=== PATIENT | male | born 1990 | race Two or more races ===

== ENCOUNTER 2021-10-16 12:30 | Emergency (ER) | payer MEDICAID ==
[2021-10-16 12:37] VITALS: BP 146/80
[2021-10-16] MEDS ORDERED: IBUPROFEN 800 MG TABLET PO STA (12:54)
[2021-10-16] MEDS ORDERED: HYDROcod/ACETAM 5/325 MG TABLET PO STA (12:54)
--- NOTE | 2021-10-16 12:56 | ED Physician Documentation ---
PD HPI LOWER EXT INJURY - Stated complaint Stated Complaint: R ANKLE INJ - Chief complaint Chief Complaint: Trauma Ext - History obtained from History obtained from: Patient - History of Present Illness PD HPI LOW EXT INJURY LOCATION: Right, Ankle Type of injury: Fall Where injury occurred: Street Timing - onset: Yesterday Timing - details: Abrupt onset, Still present Pain level now: 9 Associated symptoms: Swelling, Discolored - Additional information Additional information: Skateboarding yesterday and inverted his ankle. Unable to walk. No other injuries. Review of Systems Constitutional: reports: Reviewed and negative Eyes: reports: Reviewed and negative Ears: reports: Reviewed and negative Nose: reports: Reviewed and negative Throat: reports: Reviewed and negative Cardiac: reports: Reviewed and negative Respiratory: reports: Reviewed and negative PD PAST MEDICAL HISTORY - Past Medical History Past Medical History: No - Present Medications Home Medications: Ambulatory Orders Medication Instructions Recorded Confirmed HYDROcod/ACETAM 5/325 [[place] 5/325] 1 - 2 tab PO Q6H PRN #15 tablet 10/16/21 - Allergies Allergies/Adverse Reactions: Allergies Allergy/AdvReac Type Severity Reaction Status Date / Time No Known Drug Allergies Allergy Verified 10/16/21 12:37 - Social History Does the pt smoke?: No Smoking Status: Never smoker PD ED PE NORMAL - Vitals Vital signs reviewed: Yes - General General: Alert and oriented X 3, No acute distress - Extremities Extremities: Other (Very swollen and discolored right ankle laterally with severe malleoli or tenderness bilaterally but no significant foot tenderness or proximal fibular tenderness.) - Neuro Neuro: Alert and oriented X 3, Normal speech Results - Vitals Vitals: Vital Signs - 24 hr 10/16/21 12:35 Temperature 36.2 C L Heart Rate 96 Respiratory 16 Rate Blood Pressure 146/80 H O2 Saturation 98 Oxygen O2 Source Room air - Rads (name of study) Three-view x-ray of the right ankle demonstrates small avulsion fractures of both the medial and lateral malleoli Radiology: EMP read contemporaneously Procedures - Splint (location) Right lower extremity Splint applied by: Physician Type of splint: Fiberglass, Short leg, Posterior Other: Patient tolerated well, No complications, Neurovascular intact, Other (He already has well fitting crutches) Departure - Departure Disposition: 01 Home, Self Care Clinical Impression: Ankle fracture Qualifiers: Encounter type: initial encounter Fracture type: closed Laterality: right Qualified Code(s): S82.891A - Other fracture of right lower leg, initial encounter for closed fracture Condition: Good Record reviewed to determine appropriate education?: Yes Instructions: ED Fx Ankle Lateral Malleolus Follow-Up: Orthopedic Care [Provider Group] Prescriptions: HYDROcod/ACETAM 5/325 [[place] 5/325] 1 - 2 tab PO Q6H PRN #15 tablet PRN Reason: Pain Comments: I sent your prescription electronically to [facility] in [place]. Call the orthopedic office tomorrow to arrange for follow-up appointment within a week to 10 days. Do not walk or bear weight on the ankle until advised by them it is appropriate to do so. Crutches only. If pain is mild try to stick with Tylenol and/or ibuprofen. I am prescribing a short course of narcotic pain medication for you. These are potentially dangerous and addictive medications that should be used carefully. These medications may constipate you. Take an rbrq-evc-tboctaq stool softener (docusate) twice daily with plenty of water while taking these medications. If you go 24 hours without a bowel movement, take nlqz-ere-xeovhyg miralax, per package instructions. Do not drink or drive while taking these medications. If you received narcotic or sedating medications while in the emergency department, do not drive for 24 hours. Store this medication in a safe, secure place and out of reach of children. It is a violation of federal law to give or sell this medication to another person or to use in a manner other than prescribed. The ED will not refill narcotic prescriptions, including prescriptions lost or stolen. To dispose of unwanted medications: 1. [facility] at [address] in [place] has a medication drop box. They accept prescription medications (in pill form) Sunday through Sunday 9:00 a.m. to 5:00 p.m. 2. The [facility] [employer] accepts prescription medications (in pill form only) for disposal year round. Call for more info rmation. 3. Contact the [facility] for the next [facility] sponsored prescription drug collection event. , [phone], or [phone]; Note that many narcotic pain relievers also contain Tylenol/acetaminophen. Please ensure that your total dose of acetaminophen from all sources does not exceed 3 g (3000 mg) per day.
--- NOTE | 2021-10-16 13:09 | XRAY Report ---
PROCEDURE: Ankle 3 View RT INDICATIONS: Ankle injury TECHNIQUE: 3 views of the ankle were acquired. COMPARISON: None. FINDINGS: Bones: Small ossicles are seen adjacent to the medial and lateral malleoli. No dislocations. Ankle mortise is normally aligned. No suspicious bony lesions. Soft tissues: No tibiotalar joint effusion. Achilles tendon appears normal. Prominent soft tissue s welling over the lateral and medial malleoli. IMPRESSION: 1. Small ossicles adjacent to the medial and lateral malleoli suggest avulsion fractures. Reviewed by: Jenae Cleveland MD on 10/16/2021 12:08 PM [place] Approved by: Jenae Cleveland MD on 10/16/2021 12:08 PM [place] Station ID: [id number]
== END 2021-10-16 13:33 | disposition home or self-care (01) ==
LOC: ED 12:30
DX: S82.891A Other fracture of right lower leg, initial encounter for closed fracture (principal); V00.131A Fall from skateboard, initial encounter; Y93.51 Activity, roller skating (inline) and skateboarding
CPT/HCPCS: 29515; 73610; 99283; A9270

== ENCOUNTER 2021-10-21 09:41 | Outpatient (CLI) | payer MEDICAID ==
--- NOTE | 2021-10-21 16:54 | XRAY Report ---
PROCEDURE: Ankle 3 View RT INDICATIONS: LEG/ANKLE/FOOT PAIN SKATE BOARDING INJURY TECHNIQUE: 3 views of the ankle were acquired. COMPARISON: FINDINGS: Bones small ossicle adjacent to the medial and lateral malleoli are stable compared to prior exam. No suspicious bony lesions. Soft tissues: No tibiotalar joint effusion. Achilles tendon appears normal. Soft tissue swelling i s noted and ligamentous injury cannot be excluded. IMPRESSION: Small ossicle suggesting avulsion fractures involving the tips of the lateral medial mal leoli are unchanged compared to prior exam. Reviewed by: Elo Stevenson MD, PhD on 10/21/2021 4:53 PM PDT Approved by: Elo Stevenson MD, PhD on 10/21/2021 4:53 PM PDT Station ID: [id number]
--- NOTE | 2021-10-21 16:56 | XRAY Report ---
PROCEDURE: Foot 3 View RT INDICATIONS: LEG/ANKLE/FOOT PAIN SKATE BOARDING INJURY TECHNIQUE: 3 views of the foot were acquired. COMPARISON: None FINDINGS: Bones: No fractures or dislocations. No suspicious bony lesions. Incidental note made of an os wayne cularis. Soft tissues: No tibiotalar joint effusion. Achilles tendon appears normal. IMPRESSION: No foot fracture. No lytic osseous lesion. If symptoms and/or clinical concern for pathology persists , further assessment with repeat plain film radiographs (7-10 days) or advanced imaging (CT, MR, bone scan) should be considered. Reviewed by: Elo Stevenson MD, PhD on 10/21/2021 4:54 PM PDT Approved by: Elo Stevenson MD, PhD on 10/21/2021 4:54 PM PDT Station ID: [id number]
--- NOTE | 2021-10-21 16:57 | XRAY Report ---
PROCEDURE: Tib/Fib RT INDICATIONS: LEG/ANKLE/FOOT PAIN SKATE BOARDING INJURY TECHNIQUE: 2 views of the tibia and fibula were acquired. COMPARISON: Ankle x-ray series 10/17/2019 2. 10/21/2021 FINDINGS: Bones: No ossicles adjacent to the lateral medial malleoli are stable. Soft tissues: No suspicious soft tissue calcifications or masses. Soft tissue swelling adjacent to t he lateral medial malleoli noted and ligamentous injury is not excluded by this study. IMPRESSION: Small ossicles adjacent to the lateral medial malleoli suggesting avulsion fractures are stable chayo red to ankle x-ray series. Reviewed by: Elo Stevenson MD, PhD on 10/21/2021 4:56 PM PDT Approved by: Elo Stevenson MD, PhD on 10/21/2021 4:56 PM PDT Station ID: [id number]
== END 2021-10-21 23:59 | disposition home or self-care (01) ==
LOC: DI.WOS 09:41
PROVIDERS: ATTEND Physician Assistant
DX: S82.844A Nondisplaced bimalleolar fracture of right lower leg, initial encounter for closed fracture (principal)

== ENCOUNTER 2021-11-02 10:00 | Outpatient (CLI) | payer MEDICAID ==
--- NOTE | 2021-10-31 12:29 | XRAY Report ---
PROCEDURE: Foot 3 View RT INDICATIONS: FOOT PAIN TECHNIQUE: 3 views of the foot were acquired. COMPARISON: Right foot 10/21/2021 FINDINGS: Bones: No fractures or dislocations. No suspicious bony lesions. Soft tissues: No tibiotalar joint effusion. Achilles tendon appears normal. IMPRESSION: No visualized acute fracture or dislocation. However, occult injury cannot be excluded. Recommend CT or MR if clinical concern persists. Reviewed by: Venessa Murray MD on 10/31/2021 12:28 PM PDT Approved by: Venessa Murray MD on 10/31/2021 12:28 PM PDT Station ID: [id number]
--- NOTE | 2021-10-31 12:33 | XRAY Report ---
PROCEDURE: Ankle 3 View RT INDICATIONS: ANKLE FRACTURE TECHNIQUE: 3 views of the ankle were acquired. COMPARISON: X-ray foot 10/31/2021, x-ray foot and ankle 10/21/2021 FINDINGS: Bones: There is an unchanged appearance of small ossifications distal to the medial malleolus. Ankle mortise is normally aligned. No suspicious bony lesions. Soft tissues: No tibiotalar joint effusion. Achilles tendon appears normal. IMPRESSION: Unchanged appearance of small calcifications distal to the medial malleolus possibly rel ated to remote trauma. However, if there is presence of point tenderness, subacute avulsion injuries cannot be excluded. Reviewed by: Venessa Murray MD on 10/31/2021 12:31 PM PDT Approved by: Venessa Murray MD on 10/31/2021 12:31 PM PDT Station ID: [id number]
== END 2021-11-02 23:59 | disposition home or self-care (01) ==
LOC: DI.WOS 10:00
PROVIDERS: ATTEND Physician Assistant
DX: S82.844A Nondisplaced bimalleolar fracture of right lower leg, initial encounter for closed fracture (principal)

== ENCOUNTER 2021-11-22 15:52 | Outpatient (CLI) | payer MEDICAID ==
--- NOTE | 2021-11-22 17:22 | XRAY Report ---
PROCEDURE: Ankle 3 View RT INDICATIONS: ANKLE FX TECHNIQUE: 3 views of the ankle were acquired. COMPARISON: X-ray ankle 10/31/2021 FINDINGS: Bones: Corticated calcifications distal to the medial and lateral malleoli are again identified. Ankl e mortise is normally aligned. No suspicious bony lesions. Soft tissues: No tibiotalar joint effusion. Achilles tendon appears normal. IMPRESSION: Persistent calcifications distal to both the lateral and medial malleolus are again iden tified. They are considered age-indeterminate. If concern persists, CT or MRI is recommended. Reviewed by: Venessa Murray MD on 11/22/2021 5:20 PM PDT Approved by: Venessa Murray MD on 11/22/2021 5:20 PM PDT Station ID: [id number]
== END 2021-11-22 23:59 | disposition home or self-care (01) ==
LOC: DI.WOS 15:52
PROVIDERS: ATTEND Physician Assistant
DX: S82.844A Nondisplaced bimalleolar fracture of right lower leg, initial encounter for closed fracture (principal)